=== PATIENT | male | born 1945 | race Caucasian/White ===

== ENCOUNTER → 2021-05-12 | Outpatient (CLI) | payer MEDICARE, OTHER ==
--- NOTE | 2021-05-12 18:27 | Diagnostic Imaging Report ---
HISTORY: Injury to the right hand TECHNIQUE: 3 views of the right hand COMPARISON: None FINDINGS: No acute fracture is seen in the right hand. Alignment appears normal. There is joint space loss in multiple joints, particularly the 2nd and 3rd metacarpophalangeal joints. Degenerative changes are seen scattered throughout the right hand. There is dorsal soft tissue swelling. There is a punctate hyperdensity seen in the lateral view only about 2.5 cm proximal to the metacarpophalangeal joints, may be posterior to the 4th metacarpal. IMPRESSION: 1. Soft tissue swelling at the dorsal right hand with no acute osseous abnormality seen. 2. Punctate hyperdensity at the dorsal right hand, may represent overlying debris or punctate foreign body. Dictated by: Dictated on workstation # [id number]
--- NOTE | 2021-05-12 18:28 | Diagnostic Imaging Report ---
HISTORY: Injury to the right wrist TECHNIQUE: 3 views of the right wrist COMPARISON: None FINDINGS: No acute fracture is seen in the right wrist. Alignment appears normal. There are degenerative changes of the base of the thumb and at the distal ulna. There is dorsal soft tissue swelling at the distal right forearm. IMPRESSION: 1. Dorsal soft tissue swelling of the distal right forearm with no acute osseous abnormalities seen in the right wrist. Dictated by: Dictated on workstation # [id number]
== END ==
LOC: RAD 17:52
PROVIDERS: ATTEND Internal Medicine
DX: S69.91XA Unspecified injury of right wrist, hand and finger(s), initial encounter (principal); X58.XXXA Exposure to other specified factors, initial encounter
CPT/HCPCS: 73110; 73130

== ENCOUNTER → 2021-09-02 | Outpatient (CLI) | payer MEDICARE, OTHER ==
--- NOTE | 2021-09-02 12:21 | Diagnostic Imaging Report ---
PROCEDURE: US Thyroid. TECHNIQUE: Multiple Real-time grayscale images were obtained of the thyroid in various projections. INDICATION: Hyperthyroidism. FINDINGS: The right lobe of the thyroid measures 5.6 x 1.9 x 1.7 cm. The left lobe measures 5.3 x 1.8 x 1.5 cm. The isthmus is 2 mm. There are several spongiform-appearing nodules scattered throughout both lobes. The largest on the right is in the lower pole measuring 1.2 x 1.2 x 0.9 cm. The largest on the left is in the mid lower pole measuring 1 x 0.8 x 0.5 cm. There are no calcifications. No hypervascularity. IMPRESSION: Bilateral spongiform nodules without calcification, wider than tall, with sharp margins. These are considered of low risk. TI-RADS 3. Dictated by: Dictated on workstation # [id number]
--- NOTE | 2021-09-03 11:54 | Diagnostic Imaging Report ---
INDICATION: Hyperthyroidism. Patient was administered 208 uCi of iodine 123 orally and a 4 hour and 24-hour thyroid uptake was performed. A thyroid scan was also performed. 4 hour uptake is 1.6%. 24-hour uptake is 1.1%. Thyroid scan shows no significant activity within either lobe of the thyroid. IMPRESSION: Very low 24 hour thyroid uptake of 1%. Dictated by: Dictated on workstation # [id number]
== END ==
LOC: RAD 09:45
PROVIDERS: ATTEND Internal Medicine
DX: E04.2 Nontoxic multinodular goiter (principal); E05.90 Thyrotoxicosis, unspecified without thyrotoxic crisis or storm
CPT/HCPCS: 76536; 78014; A9516

== ENCOUNTER 2023-02-18 19:31 | Outpatient (CLI) | payer MEDICARE, OTHER | END 2023-02-19 06:28 | disposition home or self-care (01) | LOC: SLEEP 19:31 | PROVIDERS: ATTEND Nurse Practitioner | DX: G47.33 Obstructive sleep apnea (adult) (pediatric) (principal); I25.10 Atherosclerotic heart disease of native coronary artery without angina pectoris; I25.9 Chronic ischemic heart disease, unspecified | CPT/HCPCS: 95810 ==